=== PATIENT | female | born 1965 | race Caucasian/White ===

== ENCOUNTER 2025-05-20 18:02 | Emergency (ER) | payer BC, SELFPAY ==
[2025-05-20 18:26] VITALS: BP 169/101
[2025-05-20 18:53] LABS: Hematocrit 28.8 % (37.0-47.0); Hemoglobin 9.4 g/dL (12.0-16.0); Mean Corp Hgb Conc. 32.6 g/dL (33.0-37.0); Mean Corpuscular Volume 96.3 fL (81.0-99.0); Nucleated Red Blood Cells % 0 %; Platelet Count 136 10^3/uL (130-400); Red Cell Dist. Width 16.9 % (11.5-14.5)
[2025-05-20 19:12] LABS: AST (SGOT) 41 U/L (14-36); Albumin 2.7 g/dl (3.5-5.0); Alkaline Phosphatase 105 U/L (38-126); Blood Urea Nitrogen 28 mg/dl (7-17); Calcium 8.5 mg/dl (8.4-10.2); Carbon Dioxide 18 mmol/L (22-30); Chloride 119 mmol/L (98-107); Glucose 99 mg/dl (70-99); Sodium 137 mmol/L (135-145); Total Protein 7.7 g/dl (6.3-8.2); eGFR > 60.00
[2025-05-20 19:21] LABS: ALT (SGPT) 30 U/L (0-35); Potassium 4.9 mmol/L (3.5-5.1)
[2025-05-20 19:24] LABS: Troponin I 0.015 ng/ml
--- NOTE | 2025-05-20 21:18 | ED.GENMED ---
History of Present Illness
General
Chief Complaint: Breathing Problem
Time Seen by Provider: 05/20/25 21:00
History of Present Illness
History of Present Illness:
59-year-old female with history of primary biliary cirrhosis and hyperlipidemia as well as Crohn's disease presents to the emergency department for evaluation of intermittent ankle swelling and exertional dyspnea ongoing for the past several weeks
but worsening over the weekend. She reports that the edema is maximized after prolonged standing however does improve after being recumbent for some time. Denies any associated chest pain or nocturnal dyspnea.
Review of Systems
Review of Systems
Allergies reviewed?: Yes
All Other Systems: ROS reviewed and negative except as documented in HPI and ROS
Phy Exam
Physical Exam
Physical Exam:
GEN: Well appearing, NAD, WDWN
HEENT: Oral mucosa moist, no scleral icterus
Cardiac: Regular rate and rhythm, no murmur
Lung: No respiratory distress, no tachypnea, lungs clear to auscultation bilaterally
MSK: No gross deformity or injuries, trace pretibial edema bilaterally
Skin: Good color, no pallor or jaundice, no rashes
Neuro: AO x3, moves all extremities freely
Psych: Calm, cooperative
Scores
Heart Failure Risk
Heart Failure Risk Score: Not Applicable
Course
Orders/Labs/Results
Orders:
Orders
05/20/25 18:35
Electrocardiogram (*1) Urgent
Reason for Study: Other
Other Reason for Exam: Respiratory Distress
Cardiac Monitoring- Treatment ONCE
EKG- Treatment ONCE
CR Chest - 2 Views Urgent
Comment:
Reason For Exam: respiratory distress
O2 Therapy [RESP] Urgent
Titrate/Wean O2 to maintain O2 sat greater than (%): 93
Special Instructions: TO MAINTAIN CONTINUOUS O2 SATS >/= 93%
Pulse Ox/cont/shift [RESP] Urgent
Quantity: 1
Special Instructions: continuous pulse ox
05/20/25 18:38
Complete Blood Count/With Diff Urgent
Comprehensive Metabolic Panel Urgent
Ferritin Urgent
Comment: ADD ON
Iron Urgent
Comment: ADD ON
NT-proBNP Urgent
Total Iron Binding Urgent
Comment: ADD ON
Troponin I Urgent
05/20/25 22:13
Add On- LAB Urgent
Tests Added?: iron, TIBC, ferritin
Abnormal Lab Results
05/20/25
18:38
RBC 2.99 L 10^6/uL
(4.20-5.40)
Hgb 9.4 L g/dL
(12.0-16.0)
Hct 28.8 L %
(37.0-47.0)
MCH 31.4 H pg
(27.0-31.0)
MCHC 32.6 L g/dL
(33.0-37.0)
RDW 16.9 H %
(11.5-14.5)
Absolute Lymphs (auto) 1.0 L 10^3/uL
(1.2-3.4)
Lymphocytes % 19.4 L %
(20.5-51.1)
Chloride 119 H mmol/L
(98-107)
Carbon Dioxide 18 L mmol/L
(22-30)
BUN 28 H mg/dl
(7-17)
AST 41 H U/L
(14-36)
Albumin 2.7 L g/dl
(3.5-5.0)
05/20/25 18:38
05/20/25 18:38
Vital Signs
Initial and Last Documented VS:
Initial Vital Signs
Temp Pulse Resp BP Pulse Ox
98.4 F 90 18 169/101 100
05/20/25 18:26 05/20/25 18:26 05/20/25 18:26 05/20/25 18:26 05/20/25 18:26
Last Documented Vital Signs
Temp Pulse Resp BP Pulse Ox
98.4 F 81 12 167/88 99
05/20/25 18:26 05/20/25 22:30 05/20/25 22:30 05/20/25 22:00 05/20/25 22:30
MDM/Problems Addressed
MDM/Problems Addressed:
Patient is noted to be acutely anemic compared to her normal hemoglobin of 10.5, obtained through her outpatient primary care through [place]. It is not a microcytic anemia and given normal iron/TIBC/ferritin, this may represent B12 or
folic acid issue in the setting of her Crohn's. Not immediately clear that her dyspnea on exertion represents a cardiac etiology although BNP is mildly elevated, her edema may be more on the basis of hypoalbuminemia in the setting of her hepatic
disorder. Will refer her to follow-up in outpatient with cardiology for echocardiogram however at this time she does not appear acutely decompensated. She was ambulated in the ED with no hypoxia and only trivial tachycardia
Comment
Comment:
EKG independently interpreted by me shows a normal sinus rhythm at a rate of [address] changes concerning for ischemia
Chest x-ray independently interpreted by me shows trace bilateral pleural effusions with no cardiomegaly or vascular congestion
*Pulse Oximetry
SaO2: 100
Oxygen Mode of Delivery: Room air
Patient hypoxic: no
*Critical Care Note
Total Time (30-74mins, 75-104mins- exclusive of procedures): Not Applicable
ED Attending Note
-
Portions of this chart may have been created with voice recognition software.� Occasional wrong word or��sound alike� substitutions may have occurred due to the inherent limitations of voice recognition software.
Discharge Plan
Departure
Patient Disposition: Home (Routine Discharge)
Date of Disposition: 05/20/25
Time of Disposition: 22:13
Patient with high blood pressure during this ER visit?: No
Discharge Problem:
Dyspnea on exertion
Instructions: Chest Pain DCA Follow Up
Referrals:
RUCHI ZAVALA DO [Family Provider, Family Practice]
Shayla Jones MD [Active, Cardiology]
Activity Restrictions/Additional Instructions:
Begin an OTC iron supplement pending further blood work
Follow up with cardiology as discussed
Interventions
Interventions:
*Risk Screen - Suicide Last Done: 05/20/25 18:26
*General Assessment Last Done: 05/20/25 21:46
*Neglect/Abuse Screening Last Done: 05/20/25 21:46
*ED COVID-19 Vaccine History Last Done: 05/20/25 21:46
*ED Influenza Vaccine History Last Done: 05/20/25 21:46
[facility] Risk Assessment Tool Last Done: 05/20/25 20:00
*Nursing Disposition Last Done: 05/20/25 22:40
ED- Cardiac Assessment Last Done: 05/20/25 21:46
ED- Pulmonary Assessment Last Done: 05/20/25 21:46
Discharge Date and Time
Discharge Date/Time: 05/20/25 22:40
Print Language: CENTRAL AFRICAN
[2025-05-20 21:42] VITALS: BP 173/74
[2025-05-20 21:45] VITALS: BMI 29.2
[2025-05-20 22:00] VITALS: BP 167/88
[2025-05-20 22:53] LABS: Iron 78 ug/dl (37-170)
[2025-05-20 23:02] LABS: Total Iron Binding Capacity 359 ug/dl (265-497)
[2025-05-20 23:28] LABS: Ferritin 42.1 ng/ml (11.1-264.0)
== END 2025-05-20 22:40 | disposition home or self-care (01) ==
LOC: EMR 18:02
PROVIDERS: EMERGENCY PHYSICIAN Emergency Medicine; FAMILY PHYSICIAN Student in an Organized Health Care Education/Training Program
DX: R06.09 Other forms of dyspnea (principal); J90 Pleural effusion, not elsewhere classified; E78.5 Hyperlipidemia, unspecified; K74.3 Primary biliary cirrhosis; K50.90 Crohn's disease, unspecified, without complications; D64.9 Anemia, unspecified
CPT/HCPCS: 99285; 71046; 80053; 82728; 83540; 83550; 83880; 84484; 85025; 93005

== ENCOUNTER → 2025-06-15 11:44 | Outpatient (REF) | payer BC, SELFPAY | LOC: HWRCS 11:44 | PROVIDERS: ATTENDING PHYSICIAN Nuclear Medicine Nuclear Cardiology; FAMILY PHYSICIAN Student in an Organized Health Care Education/Training Program | DX: R06.09 Other forms of dyspnea (principal); R60.0 Localized edema | CPT/HCPCS: 78452; 93017; A9500; J2785 ==

== ENCOUNTER → 2025-06-17 11:19 | Outpatient (REF) | payer BC, SELFPAY | LOC: RCS 11:19 | PROVIDERS: ATTENDING PHYSICIAN Nuclear Medicine Nuclear Cardiology; FAMILY PHYSICIAN Student in an Organized Health Care Education/Training Program | DX: R06.09 Other forms of dyspnea (principal); R60.0 Localized edema | CPT/HCPCS: 93306 ==